=== PATIENT | female | born 1990 | race African-American/Black ===

== ENCOUNTER 2025-05-20 05:08 | Emergency (ER) | payer OTHER ==
[~2025-05-20] VITALS: Ht 162.6 cm; Wt 102.1 kg
[2025-05-20] MEDS ORDERED: IBUPROFEN 600 MG TABLET ONE (07:04)
[2025-05-20] MEDS: IBUPROFEN 600 MG TABLET PO ONE (07:06)
[2025-05-20 07:26] LABS: PLATELET COUNT (AUTO) 283 K/uL (150-450); RED BLOOD CELL COUNT(AUTO) 4.67 MIL/uL (4.0-5.2); RED CELL DISTRIBUTION WIDTH 13.0 % (11.5-15.0); WHITE BLOOD COUNT (AUTO) 8.8 K/uL (4.3-11.0)
[2025-05-20 07:39] LABS: CALCIUM, SERUM 9.3 mg/dL (8.5-10.1); CREATININE 0.9 mg/dL (0.6-1.3); SODIUM SERUM 141 mmol/L (136-145); UREA NITROGEN, BLOOD 13 mg/dL (7-18)
[2025-05-20 07:56] LABS: ASPARTATE AMINOTRANSFERASE 24 U/L (15-37); TOTAL PROTEIN, SERUM 8.1 g/dL (6.4-8.2)
[2025-05-20 08:00] VITALS: BP 123/67; TEMP 98; O2SAT 100
== END 2025-05-20 09:37 | disposition home or self-care (01) ==
LOC: ER 05:21
DX: R07.89 Other chest pain (principal)
CPT/HCPCS: 36415; 71045-TC; 80048-TC; 80076-TC; 84484-TC; 84702-TC; 85025-TC